=== PATIENT | male | born 1945 | race Caucasian/White ===

== ENCOUNTER 2017-04-13 06:24 | Inpatient (IN) | payer MEDICARE, OTHER ==
--- NOTE | ~2017-04-13 | CR73 ---
[facility] A Service of [facility] & [facility] RADIOLOGY TEXT RESULTS PATIENT: GREG MORAN LOCATION: [facility] 237-01 : 46 UNIT #: [id number] AGE: [address]: Nadir Castro MD SEX: M ORDER DR: [id number] [facility] [address] [place], [place] [address] [id number] I MR#: [id number] Acc #: [id number] NAME: GREG MORAN : 1945 SEX: M STUDY DATE/TIME: 04/14/2017 11:27 UNIT: [facility] ROOM: [facility] STUDY DESCRIPTION: CR Cholangiogram Operative Attending Physician: Nadir Castro M.D. Ordering Physician: Nadir Castro M.D. Primary Care Physician: Nadir Bailey M.D. MEDICAL IMAGING REPORT This report is preliminary unless electronic signature is present EXAM Intraoperative cholangiogram INDICATION Laparoscopic cholecystectomy. Cholecystitis. FINDINGS Single image was provided from an intraoperative cholangiogram performed by Dr. Castro. Fluoro time 9 seconds. Study shows injection of the cystic duct with normal filling of the common bile duct. There is free spillage of contrast into the duodenum. No evidence of a retained common duct stone. IMPRESSION Normal single image from an intraoperative cholangiogram. Dictated by... Nadir Duke Jr., M.D. THIS IS AN ELECTRONICALLY VERIFIED REPORT Nadir Duke Jr., M.D. at 04/15/2017 5:27 PM CHEVY/brandon TD: 04/15/2017 08:17 JOB #: [id number] MEDICAL IMAGING REPORT Page 1 of 1 COPY
--- NOTE | ~2017-04-13 | OR ---
Unit #: [id number] #: [id number] Patient: GREG MORAN [id number] [address] [place], [place] [address] [id number] I MR#: [id number] NAME: GREG MORAN. ROOM: 237 Date of Procedure: 04/14/2017 Admission Date: 04/13/2017 Surgeon: Nadir Castro M.D. : 1945 Attending Physician: Nadir Castro M.D. Primary Care Physician: Nadir Bailey M.D. OPERATIVE REPORT PREOPERATIVE DIAGNOSIS Acute cholecystitis. POSTOPERATIVE DIAGNOSIS Gangrenous cholecystitis. PROCEDURES PERFORMED Laparoscopic cholecystectomy with intraoperative cholangiogram and Konrad-Zabala placement. ANESTHESIA General endotracheal anesthesia. ESTIMATED BLOOD LOSS 40 mL. INDICATIONS FOR PROCEDURE A 71-year-old gentleman presented to the ER with progressive right upper quadrant pain and on radiologic evaluation, found to have acute cholecystitis. Preoperative liver chemistries were normal and his biliary ductal system was normal radiographically. He did have fever and leukocytosis. DESCRIPTION OF PROCEDURE The patient was transported from his hospital room to the operating room, and after induction of general endotracheal anesthesia, he was prepped and draped in usual sterile fashion. A 5-mm supraumbilical incision was made. Veress needle was placed. Pneumoperitoneum was created. Then, a 5-mm trocar was placed. Laparoscope was introduced into peritoneal cavity. Under direct vision, the epigastric and lateral ports were placed. The gallbladder was distended and inflamed with early gangrenous changes along the exposed wall of the gallbladder. An ovarian aspirator was used to decompress the gallbladder, was then grasped and elevated. Adhesions were stripped away and the infundibulum was identified, and the triangle of Calot was dissected out identifying the cystic duct and cystic artery. The cystic artery was doubly clipped proximally and distally and divided. I then was able to create the liver window to fully visualize the ductal system. A cholangiogram was performed in the usual fashion that confirmed normal biliary ductal anatomy. The cystic duct had three clips placed proximal to the common duct and a single clip as the cystic entered the gallbladder and the cystic duct was divided. The gallbladder was dissected out of liver bed using sharp and cautery dissection. Once it Unit #: [id number] #: [id number] Patient: GREG MORAN was freed up from its hepatic attachments, it was put in an EndoCatch bag and brought out through the epigastric port. I copiously irrigated the operative site and suctioned the irrigant out. There was adequate hemostasis and the clips were well positioned. Through 1 of the lateral ports, 1 of the Konrad-Zabala drains were placed in the subhepatic space. The drain was secured with 2-0 silk suture. I then reduced the pneumoperitoneum, and closed the epigastric fascial defect using a neoClose device. Trocars and laparoscope were removed. The skin was closed with 4-0 Monocryl subcuticular closure and Dermabond skin adhesive. Sponges and needle counts were correct x3. The patient tolerated the procedure well and was transported to recovery in stable condition. Findings and postoperative expectations were discussed with his . Dictated by... Chantal Alfredo/doyle TD: 04/14/2017 19:53 JOB #: [id number] OPERATIVE REPORT Page 1 of 1 X Nadir Castro MD PROCEDURE OPERATIVE NOTE
--- NOTE | ~2017-04-13 | DS ---
Unit #: [id number] #: [id number] Patient: GREG MORAN [id number] [address] [address] [id number] I MR#: [id number] NAME: GREG MORAN ROOM: 237 Age: 71 Sex: M Admission Date: 04/13/2017 : 1945 Discharge Date: 04/16/2017 Attending Physician: Nadir Castro M.D. Primary Care Physician: Nadir Bailey M.D. DISCHARGE SUMMARY DISCHARGE DIAGNOSES Acute cholecystitis. OPERATIVE PROCEDURE 1. Laparoscopic cholecystectomy. 2. Intraoperative cholangiogram with Konrad-Zabala drain placement. DISCHARGE MEDICATIONS 1. Lortab 7.5 mg 1 p.o. q.4 hours p.r.n. pain. 2. Flomax 0.4 mg 1 p.o. daily plus home medications. HISTORY OF PRESENT ILLNESS/HOSPITAL COURSE 71-year-old white male presented with acute cholecystitis on examination, clinically and x-ray findings. He was taken to surgery. Laparoscopic cholecystectomy was performed after 24 hours of intravenous antibiotics. The patient had to have a Konrad-Zabala drain placed for drainage of right upper quadrant inflammation. He also had intraoperative cholangiogram, which was normal. The patient has done fairly well. The only problem he has had is urinary retention. We are taking his catheter out at present. If he voids, he should be able to go home today. His Konrad-Zabala drain has been removed. He was discharged on a regular diet. He is to do no heavy lifting or strenuous activity. Dictated by... Chantal Quezada/freda TD: 04/19/2017 13:33 JOB #: [id number] DISCHARGE SUMMARY Page 1 of 1 X Roge Sparks MD X DISCHARGE SUMMARY
--- NOTE | ~2017-04-13 | CT2 ---
[facility] A Service of [facility] & [facility] RADIOLOGY TEXT RESULTS PATIENT: GREG MORAN LOCATION: [place] [address] : 46 UNIT #: [id number] AGE: [address]: Nadir Castro MD SEX: M ORDER DR: [id number] [facility] [address] [place], [place] [address] [id number] E MR#: [id number] Acc #: [id number] NAME: GREG MORAN : 1945 SEX: M STUDY DATE/TIME: 04/13/2017 9:04 UNIT: [facility] ROOM: STUDY DESCRIPTION: CT Abd and Pelv W Cont Attending Physician: Yoni Paredes Ordering Physician: Ed Doc Chantal Ramos Primary Care Physician: Nadir Bailey M.D. MEDICAL IMAGING REPORT This report is preliminary unless electronic signature is present EXAM CT abdomen and pelvis with contrast 04/13/2017 HISTORY Upper mid abdomen pain since this a.m. Nausea. TECHNIQUE CT abdomen and pelvis performed with intravenous administration of 100 mL Isovue-370. Enteric contrast also administered. This CT exam was performed with one or more of the following radiation dose reduction techniques: automatic exposure control, adjustment of mA and/or kV according to patient size, and iterative reconstruction. FINDINGS Lung bases show emphysema. Mild basilar bronchiectasis without evidence of mucous plugging. Inferior heart and pericardium unremarkable. The liver is notable for mild central biliary ductal prominence. The gallbladder is distended greater than anticipated for fasting individual. It measures 5-5.4 cm in transverse diameter. There are multiple gallstones in the lower gallbladder segment. I do not see indication of choledocholithiasis. However, there is some subtle haziness in the fat adjacent to the central common bile duct and adjacent to the gallbladder neck. Constellation of findings raises concern for early/mild cholecystitis. Correlate with the patient's clinical and laboratory data. There are some very subtle hyperdensities which appear to be within the cystic duct which could be a manifestation of calculi within the cystic duct causing developing obstruction. Adrenal glands, spleen, pancreas, kidneys unremarkable. CT Pelvis: No inguinal adenopathy. Urinary bladder prostate unremarkable. No pelvic or retroperitoneal adenopathy. There is contrast material in the distal esophagus which may reflect gastroesophageal reflux. No hiatal hernia is present. Stomach, small bowel unremarkable. [facility]. [facility] A Service of [facility] & [facility] RADIOLOGY TEXT RESULTS PATIENT: GREG MORAN LOCATION: [facility] [address] : 46 UNIT #: [id number] AGE: [address]: Nadir Castro MD SEX: M ORDER DR: I believe the patient retains normal appendix. Colon shows moderate stool burden without pathologic dilatation. This may be physiologic in nature. Correlate with any clinical signs or symptoms of constipation. Scattered atherosclerotic arterial calcifications. No aneurysm. Degenerative changes in the lumbar spine. No acute-appearing bony abnormality. IMPRESSION 1. Findings concerning for early acute cholecystitis. The gallbladder is abnormally dilated measuring up to about 5.4 cm in diameter, greater than anticipated for a fasting individual. There are multiple gallstones in the lower gallbladder segment/gallbladder neck and there appear to be some subtle hyperdensities within the cystic duct concerning for cystic duct calculi. In addition, there is some subtle haziness in the fat adjacent to the lower gallbladder segment in the region of the gallstones. Please correlate with the patient's clinical presentation and laboratory data. I do not see evidence of choledocholithiasis; however, there is mild central intrahepatic biliary ductal dilatation. Again findings concerning for early acute cholecystitis. 2. Pancreas, kidneys, appendix normal. 3. Moderate stool burden in otherwise unremarkable colon. Probably physiologic in nature. Correlate with any clinical indicators of constipation. 4. Emphysema and mild bronchiectasis at the lung bases. Correlate with risk factors. No acute appearing basilar lung disease. 5. There is contrast material in the distal esophagus suggesting gastroesophageal reflux. Dictated by... Juan Diego Nichols M.D. THIS IS AN ELECTRONICALLY VERIFIED REPORT Juan Diego Nichols M.D. at 04/14/2017 6:42 PM LAITHK/leatha TD: 04/13/2017 11:22 JOB #: [id number] MEDICAL IMAGING REPORT Page 1 of 1 COPY
--- NOTE | ~2017-04-13 | CO ---
Unit #: [id number] #: [id number] Patient: GREG MORAN [id number] [address] [place], [place] [address] [id number] I MR#: [id number] NAME: GREG MORAN. ROOM: 237 Age: 71 Sex: M Admission Date: 04/13/2017 : 1945 Attending Physician: Nadir Castro M.D. Primary Care Physician: Nadir Bailey M.D. Consultation Date: 04/15/2017 CONSULTATION REPORT CHIEF COMPLAINT Urgency. HISTORY OF PRESENT ILLNESS Patient here status post laparoscopic cholecystectomy, postoperative urinary retention. Catheter placed, 600 mL residual. Patient denies problem urinating prior to this hospitalization. CT scan did show some constipation. He denies dysuria or gross hematuria prior to this episode. Currently, he has some feeling of urgency due to the catheter. PAST MEDICAL HISTORY 1. Cholecystectomy. 2. GERD. 3. Cervical laminectomy. 4. Hypertension. FAMILY HISTORY Noncontributory. REVIEW OF SYSTEMS Urgency, negative for the other 10 systems except for a little bit of abdominal discomfort. ALLERGIES Hydrochlorothiazide and Diovan. MEDICATIONS He takes Prilosec and Coreg at home. PHYSICAL EXAMINATION VITAL SIGNS: He is afebrile. Vital signs stable. GENERAL: Alert and oriented, no acute distress. NECK: Supple. Trachea midline. PULMONARY: Benign. CARDIAC: Benign. ABDOMEN: Soft without rebound, guarding. He has got SOTERO drain in place with serosanguineous fluid. Tracy catheter in place. GENITALIA: Bilaterally descended testicles. No palpable masses. Some dried blood around the meatus and on his scrotum. Urine in the catheter is clear. DIAGNOSTIC STUDIES LABORATORY: Creatinine 0.8. White blood cell count 12.4. ASSESSMENT Unit #: [id number] #: [id number] Patient: GREG MORAN Urinary retention. PLAN Will start him on Flomax. Patient wants a voiding trial in the morning. Patient aware he may not pass a voiding trial, especially with just one dose of Flomax. If his constipation improves, this could also help his urinary retention. I started him on Flomax. Will obtain a UA and a culture sensitivity. Thank you for the referral and chance to participate in his care. Dictated by... Chantal Kim/nicolette TD: 04/17/2017 10:41 JOB #: [id number] CONSULTATION REPORT Page 1 of 1 X Keshawn Singleton MD X CONSULTATION REPORT
--- NOTE | ~2017-04-13 | CO ---
Unit #: [id number] #: [id number] Patient: GREG ADAM [id number] [address] [address] [id number] I MR#: [id number] NAME: GREG ADAM ROOM: 237 Age: 71 Sex: M Admission Date: 04/13/2017 : 1945 Attending Physician: Nadir Castro M.D. Primary Care Physician: Nadir Bailey M.D. Consultation Date: 04/13/2017 CONSULTATION REPORT REASON FOR CONSULTATION Right upper quadrant and epigastric pain. CONSULTING PHYSICIAN [facility] Emergency Room physician. Thank you very much for asking us to see Mr. Adam. HISTORY OF PRESENT ILLNESS He is a 71-year-old white male, who developed epigastric and right upper quadrant pain 36 hours ago. It worsened and he came to the emergency room. A CT scan was performed, which revealed cholelithiasis with a distended gallbladder and some changes consistent with early cholecystitis. No other abnormalities were found. The patient has had no GI bleeding. No jaundice. No or pulmonary symptoms. ALLERGIES Hydrochlorothiazide and valsartan. MEDICATIONS At home include Prilosec and Coreg. PAST SURGICAL HISTORY Cervical laminectomy. PAST MEDICAL HISTORY Hypertension and GERD. SOCIAL HISTORY Positive tobacco use. No alcohol use. REVIEW OF SYSTEMS Negative except for above. IMMUNIZATION STATUS Unknown. FAMILY HISTORY Noncontributory. PHYSICAL EXAMINATION GENERAL: Well-developed, well-nourished white male, in no apparent distress. VITAL SIGNS: Temperature 97.8, pulse 72, respirations 16, blood pressure Unit #: [id number] #: [id number] Patient: GREG ADAM 148/83. GENERAL: Awake, alert and oriented x3. NECK: Supple. No thyromegaly or adenopathy. BACK: No CVA or spinous tenderness. CHEST: Breath sounds bilaterally to auscultation clear. ABDOMEN: Distended. Very tender in the epigastric area and right upper quadrant with some mild guarding. No rebound, peritoneal signs, or masses. EXTREMITIES: No calf tenderness, no erythema. DIAGNOSTIC STUDIES LABORATORY RESULTS: Normal liver function studies and a white blood cell count of 11,000. IMPRESSION A 71-year-old white male with epigastric and right upper quadrant pain as well as gallstones on CT scan and changes consistent with early cholecystitis. We have explained to the patient as well as his that we recommend proceeding with laparoscopic cholecystectomy. He will be started on IV fluids and IV antibiotics now. All the risks and benefits of the procedure have been fully explained to the patient in detail including the risk of bleeding, infection, common bile duct injury, choledochojejunostomy, conversion to an open procedure, transfer, , and other risks. They both understand completely and requests to proceed. Dictated by... Chantal Arroyo/doyle TD: 04/14/2017 00:43 JOB #: [id number] CC: [facility] CONSULTATION REPORT Page 1 of 1 X Justino Walker MD X CONSULTATION REPORT
[~2017-04-13 06:24] MED LIST: AMITRYPTYLINE PO; DIOVAN HCT 160/1 TAB PO; DIOVAN PO; NEXIUM PO; SULAR PO
[2017-04-13 07:04] LABS: BASOPHIL# 0.1 X10e3 (0-0.3); BASOPHIL% 0.8 % (0-2.5); EOSINOPHIL# 0.1 X10e3 (0-0.7); EOSINOPHIL% 0.6 % (0.0-7.0); HEMATOCRIT 43.8 % (38.0-50.0); LYMPHOCYTE% 8.5 % (17.0-45.0); MEAN CELL VOLUME 87.8 FL (83-96); MEAN CORPUSCULAR HEMOGLOBIN 30.1 PG (28-34); MEAN CORPUSCULAR HGB CONC 34.3 g/dL (30-36); MEAN PLATELET VOLUME 7.2 FL (6.5-11.5); MONOCYTE# 0.8 X10e3 (0-1.0); MONOCYTE% 6.5 % (3.0-12.0); NEUTROPHIL# 9.7 X10e3 (1.5-7.1); NEUTROPHIL% 83.6 % (40-75); PLATELET COUNT 276 X10e3 (140-420); RED BLOOD COUNT 4.99 X10e (3.90-5.60); RED CELL DISTRIBUTION WIDTH 13.1 % (11.0-15.5); WHITE BLOOD COUNT 11.6 X10e3 (4.0-10.5)
[2017-04-13 07:05] LABS: DIFF IND NO
[2017-04-13 07:22] LABS: POC - CKMB <1.0 ng/mL (0.0-7.9); POC - TROPONIN <0.05 ng/mL (<=0.05)
[2017-04-13 07:42] LABS: ALBUMIN SERUM 4.4 g/dL (3.5-5.0); BILIRUBIN, DIRECT 0.2 mg/dL (0.0-0.2); BILIRUBIN,INDIRECT 0.7 mg/dL (0.0-0.9); BILIRUBIN,TOTAL 0.9 mg/dL (0.2-2.0); BUN/CREATININE RATIO 17.5; CALCIUM SERUM 8.9 mg/dL (8.4-10.2); CREATININE SERUM 0.8 mg/dL (0.6-1.4); GLOM FILT RATE Estimated 90.5 mL/min (>60); POTASSIUM 3.3 mmol/L (3.5-5.1)
[2017-04-13] MEDS ORDERED: PATIENT'S PHARMACY (10:48)
[2017-04-13] MEDS ORDERED: AMITRIPTYLINE H50 MG PO (10:49)
[2017-04-13] MEDS ORDERED: PRAVASTATIN SOD40 MG PO (10:50)
[2017-04-13] MEDS ORDERED: NORVASC10 MG PO (10:50)
[2017-04-13] MEDS ORDERED: COREG6.25 MG PO (10:50)
[2017-04-13] MEDS ORDERED: OMEPRAZOLE20 M2 PO (10:50)
[2017-04-15 08:11] LABS: HEMATOCRIT 34.8 % (38.0-50.0); HEMOGLOBIN 11.6 gm/dL (13.0-16.0); MEAN CELL VOLUME 90.8 FL (83-96); MEAN CORPUSCULAR HEMOGLOBIN 30.3 PG (28-34); MEAN CORPUSCULAR HGB CONC 33.4 g/dL (30-36); MEAN PLATELET VOLUME 7.8 FL (6.5-11.5); RED BLOOD COUNT 3.83 X10e (3.90-5.60); RED CELL DISTRIBUTION WIDTH 13.2 % (11.0-15.5); WHITE BLOOD COUNT 12.4 X10e3 (4.0-10.5)
[2017-04-15 08:51] LABS: ALBUMIN SERUM 2.6 g/dL (3.5-5.0); BILIRUBIN,TOTAL 5.3 mg/dL (0.2-2.0); BUN/CREATININE RATIO 31.25; CALCIUM SERUM 7.6 mg/dL (8.4-10.2); CREATININE SERUM 0.8 mg/dL (0.6-1.4); GLOM FILT RATE Estimated 90.5 mL/min (>60); MAGNESIUM 1.9 mg/dL (1.6-3.0); PHOSPHOROUS 1.7 mg/dL (2.5-4.6); POTASSIUM 4.1 mmol/L (3.5-5.1); PROTEIN TOTAL SERUM 5.3 g/dL (6.0-8.3)
[2017-04-16 03:05] LABS: URINE SOURCE CATH
[2017-04-16 03:11] LABS: URINE APPEARANCE CLEAR; URINE BLOOD 3+ (NEG); URINE COLOR DK YELLOW; URINE GLUCOSE NEG (NEG); URINE KETONE 1+ (NEG); URINE LEUKOCYTE ESTERASE 2+ (NEG); URINE NITRATE NEG (NEG); URINE PROTEIN 1+ (NEG); URINE SPECIFIC GRAVITY 1.017 (1.003-1.035)
[2017-04-16 03:14] LABS: U HYALINE CASTS AUWI 0-2 /[LPF]; URBCS1 AUWI INNUM /[HPF] (0-2); URINE BACTERIA AUWI NEG (NEGATIVE); URINE SQUAMOUS EPITHELIAL CELL NONE SEEN /[HPF]
[2017-04-16 03:34] LABS: URINE BILIRUBIN POS (NEG)
[2017-04-16] MEDS ORDERED: LORTAB 7.5-3251 EACH PO (06:39)
[2017-04-16] MEDS ORDERED: FLOMAX0.4 M1 PO (06:40)
== END 2017-04-16 08:26 | disposition home or self-care (01) | DRG 419 ==
LOC: CED 06:24 → C2A 10:25 → CEDOF 10:25 → CED 11:10 → CEDOF 11:10 → C2A 14:40 → CEDOF 14:40 → C2A 04-16 08:26
PROVIDERS: Emergency Medicine; Specialist; Urology
PROC: BF13YZZ Fluoroscopy of Gallbladder and Bile Ducts using Other Contrast (ICD-10-PCS; 2017-04-14)
PROC: [UNRECOGNIZED PROCEDURE] (2017-04-14)
PROC: 0W9G40Z Drainage of Peritoneal Cavity with Drainage Device, Percutaneous Endoscopic Approach (ICD-10-PCS; 2017-04-14)
PROC: 0FT44ZZ Resection of Gallbladder, Percutaneous Endoscopic Approach (ICD-10-PCS; principal; 2017-04-14 10:00)
DX: K81.0 Acute cholecystitis (principal); I10 Essential (primary) hypertension; K21.9 Gastro-esophageal reflux disease without esophagitis; F17.210 Nicotine dependence, cigarettes, uncomplicated; R33.9 Retention of urine, unspecified; K59.00 Constipation, unspecified
CPT/HCPCS: 36415; 74177; 74300; 80048; 80053; 80076; 81003; 82150; 82553; 83690; 83735; 84100; 84484; 85025; 85027; 86677; 87086; 88304; 94010; 94760; 96374; 96375; 99285; C9113; J0330; J1610; J1650; J1885; J2250; J2270; J2405; J2543; J2550; J3010; Q9967